=== PATIENT | male | born 1960 | race Hispanic/Latino ===

== ENCOUNTER 2020-03-07 21:35 | Emergency (ER) | payer SELFPAY ==
[2020-03-07] MEDS ORDERED: HYDROmorphone 1 MG/1 ML INJ IV ONE (22:01)
[2020-03-07] MEDS ORDERED: ONDANSETRON 4 MG/2 ML INJ IV ONE (22:01)
--- NOTE | 2020-03-07 22:04 | Emergency Department Report ---
ED Abdominal Pain HPI - General Chief Complaint: Pain General Stated Complaint: GROIN PAIN Time Seen by Provider: 03/07/20 21:56 Source: patient, EMS Mode of arrival: Stretcher Limitations: No Limitations - History of Present Illness Initial Comments: 60-year-old male, no past medical history, presents to ED with left groin pain. Patient states he picked up his grandson and then went to lay on the bed and "a hernia popped up." Patient denies any history of hernias in the past. EMS was called. Patient was given fentanyl by EMS prior to arrival. Patient reports nausea. MD Complaint: abdominal pain -: hour(s) (2) Location: LLQ Radiation: none Migration to: no migration Severity: severe Quality: sharp Consistency: constant Improves With: nothing Worsens With: other (Palpation) Associated Symptoms: nausea. denies: vomiting - Related Data Previous Rx's Medication Instructions Recorded Last Taken Type Naproxen [Naprosyn] 500 mg PO BID #20 tablet 03/07/20 Unknown Rx traMADoL [Ultram] 50 mg PO Q6HR PRN #7 tablet 03/07/20 Unknown Rx Allergies Allergy/AdvReac Type Severity Reaction Status Date / Time Penicillins Allergy Vomiting Verified 03/07/20 22:00 ED Review of Systems ROS: Stated complaint: GROIN PAIN Other details as noted in HPI Comment: All other systems reviewed and negative Gastrointestinal: abdominal pain, nausea ED Past Medical Hx - Past Medical History Previous Medical History?: No - Surgical History Past Surgical History?: No - Social History Smoking Status: Current Every Day Smoker Substance Use Type: None - Medications Home Medications: Home Medications Medication Instructions Recorded Confirmed Last Taken Type Naproxen [Naprosyn] 500 mg PO BID #20 tablet 03/07/20 Unknown Rx traMADoL [Ultram] 50 mg PO Q6HR PRN #7 tablet 03/07/20 Unknown Rx ED Physical Exam - General Limitations: No Limitations General appearance: alert, other (Appears uncomfortable) - Head Head exam: Present: atraumatic, normocephalic - Eye Eye exam: Present: normal appearance, EOMI - ENT ENT exam: Present: mucous membranes moist - Neck Neck exam: Present: normal inspection - Respiratory Respiratory exam: Present: normal lung sounds bilaterally. Absent: respiratory distress - Cardiovascular Cardiovascular Exam: Present: regular rate, normal rhythm - GI/Abdominal GI/Abdominal exam: Present: soft, hernia (Left inguinal). Absent: distended, tenderness - exam: Present: other (Left inguinal hernia present) - Extremities Exam Extremities exam: Present: normal inspection - Neurological Exam Neurological exam: Present: alert, oriented X3 - Psychiatric Psychiatric exam: Present: normal affect, normal mood - Skin Skin exam: Present: warm, dry, intact, normal color ED Course Vital Signs 03/07/20 03/07/20 03/07/20 21:50 22:04 22:06 Temperature 97.6 F Pulse Rate 77 Respiratory 16 18 Rate Blood Pressure Blood Pressure 172/88 [Left] O2 Sat by Pulse 100 Oximetry 03/07/20 22:15 Temperature Pulse Rate 70 Respiratory 26 H Rate Blood Pressure 184/95 Blood Pressure [Left] O2 Sat by Pulse 98 Oximetry - Reevaluation(s) Reevaluation #1: 03/07/20 22:13 Pt given Dilaudid 1 mg. Able to reduce left inguinal hernia. ED Medical Decision Making - Lab Data Result diagrams: 03/07/20 22:32 03/07/20 22:32 - Radiology Data Radiology results: report reviewed, image reviewed - Medical Decision Making 60-year-old male with left inguinal hernia, reduced at bedside. CT scan only shows small amount of fat within the hernia. Labs are unremarkable. Patient feeling much better at this time. He has been advised to follow-up with general surgeon. Return precautions given. - Differential Diagnosis Hernia, bowel obstruction Critical care attestation.: If time is entered above; I have spent that time in minutes in the direct care of this critically ill patient, excluding procedure time. ED Disposition Clinical Impression: Left inguinal hernia Disposition: - TO HOME OR SELFCARE Is pt being admited?: No Condition: Stable Instructions: Inguinal Hernia (ED) Prescriptions: Naproxen [Naprosyn] 500 mg PO BID #20 tablet traMADoL [Ultram] 50 mg PO Q6HR PRN #7 tablet PRN Reason: Pain Referrals: STEPH SYED MD [Staff Physician] - 3-5 Days
[2020-03-07 22:34] VITALS: BP 184/95
[2020-03-08 16:31] LABS: BUN/Creatinine Ratio 20
[2020-03-08 16:43] LABS: Eosinophils # (Auto) 0.1 K/mm3 (0.0-0.4); Eosinophils % (Auto) 1.6 % (0.0-4.3); Hematocrit 36.4 % (35.5-45.6); Hemoglobin 12.5 gm/dl (11.8-15.2); Lymphocytes # (Auto) 1.3 K/mm3 (1.2-5.4); Lymphocytes % (Auto) 27.5 % (13.4-35.0); Mean Corpuscular HGB Conc 34 % (32-34); Mean Corpuscular Volume 90 fl (84-94); Monocytes # (Auto) 0.5 K/mm3 (0.0-0.8); Monocytes % (Auto) 11.1 % (0.0-7.3); Platelet Count 162 K/mm3 (140-440); Red Blood Count 4.07 M/mm3 (3.65-5.03); Red Cell Distribution Width 13.3 % (13.2-15.2)
[2020-03-08 16:49] LABS: INR 0.97 (0.87-1.13)
[2020-03-08 16:50] LABS: Partial Thromboplastin Time 26.1 Sec. (24.2-36.6)
[2020-03-08 19:11] LABS: Blood Urea Nitrogen 18 mg/dL (9-20); Calcium 9.2 mg/dL (8.4-10.2)
--- NOTE | 2020-03-11 07:33 | Cat Scan Report ---
CT ABDOMEN AND PELVIS WITH CONTRAST INDICATION / CLINICAL INFORMATION: Patient complains of abd pain, possible LEFT inguinal hernia.. TECHNIQUE: Axial CT images were obtained through the abdomen and pelvis after 100 mL Omnipaque [address] scans at this location are performed using CT dose reduction for ALARA by means of automated exposure control. COMPARISON: None available. FINDINGS: LOWER CHEST: No significant abnormality. LIVER: No significant abnormality. GALLBLADDER: Small noncalcified stone. No wall thickening or inflammation. BILE DUCTS: No significant abnormality. PANCREAS: No significant abnormality. SPLEEN: No significant abnormality. ADRENALS: No significant abnormality. RIGHT KIDNEY / URETER: No significant abnormality. LEFT KIDNEY / URETER: No significant abnormality. STOMACH / SMALL BOWEL: No significant abnormality. COLON: No significant abnormality. APPENDIX: No significant abnormality. PERITONEUM: No free fluid. No free air. No fluid collection. LYMPH NODES: No significant adenopathy. AORTA / ARTERIES: Mild atherosclerotic calcification without acute abnormality. IVC / VEINS: No significant abnormality. URINARY BLADDER: No significant abnormality. REPRODUCTIVE ORGANS: No significant abnormality. ADDITIONAL FINDINGS: Very small fat-containing left inguinal hernia. No bowel involvement. SKELETAL SYSTEM: Lumbar degenerative findings but no acute osseous abnormality. IMPRESSION: 1. Very small fat-containing left inguinal hernia. 2. No inflammatory process or bowel obstruction. 3. Cholelithiasis. Signer Name: Jayjay Galdamez MD Signed: 03/08/2020 12:34 AM Workstation Name: [id number]
== END 2020-03-08 01:15 | disposition home or self-care (01) ==
LOC: ED 21:35
DX: K40.90 Unilateral inguinal hernia, without obstruction or gangrene, not specified as recurrent (principal); F17.200 Nicotine dependence, unspecified, uncomplicated; Z88.0 Allergy status to penicillin; Z79.899 Other long term (current) drug therapy
CPT/HCPCS: 36415; 74177; 80048; 85025; 85610; 85730; 96374; 96375; 99284; J1170; J2405; Q9967

== ENCOUNTER 2020-08-21 10:10 | Emergency (ER) | payer OTHER ==
--- NOTE | 2020-08-21 10:55 | Event Note ---
ED Screening Note Date of service: 08/21/20 Time: 10:54 ED Screening Note: 30-year-old male presents the emergency department chief complaint of left-sided groin pain. On exam patient has an incarcerated left inguinal hernia. Reports this has been incarcerated since he woke up this morning a few hours ago. He denies any vomiting or additional abdominal pain. This initial assessment/diagnostic orders/clinical plan/treatment(s) is/are subject to change based on patients health status, clinical progression and re- assessment by fellow clinical providers in the ED. Further treatment and workup at subsequent clinical providers discretion. Patient/guardian urged not to elope from the ED as their condition may be serious if not clinically assessed and managed. Initial orders include: cbc, cmp, urinalysis
[2020-08-21] MEDS ORDERED: MORPHINE 4 MG/1 ML INJ IV ONE (11:10)
[2020-08-21] MEDS ORDERED: ONDANSETRON 4 MG/2 ML INJ IV ONE (11:10)
--- NOTE | 2020-08-21 11:12 | Emergency Department Report ---
HPI - General Chief Complaint: Urogenital-Male Time Seen by Provider: 08/21/20 11:07 - HPI HPI: This is a 60-year-old male who presents to the emergency department with complaint of left groin pain and swelling that started this morning. The patient was here in February of last year and was found to have a fat filled left inguinal hernia. He has not taken anything for symptoms prior to presentation. He says it is currently 10 out of 10 in intensity. The pain increases with any palpation or certain movements. No known alleviating factors. He denies any fever, nausea, vomiting, dysuria, hematuria, back pain. He has not seen a general surgeon regarding the hernia. He denies any past medical history. ED Past Medical Hx - Past Medical History Previous Medical History?: No - Surgical History Past Surgical History?: No - Social History Smoking Status: Current Every Day Smoker Substance Use Type: None - Medications Home Medications: Home Medications Medication Instructions Recorded Confirmed Last Taken Type Naproxen [Naprosyn] 500 mg PO BID #20 tablet 03/07/20 Unknown Rx traMADoL [Ultram] 50 mg PO Q6HR PRN #7 tablet 03/07/20 Unknown Rx ED Review of Systems ROS: Stated complaint: GROIN/PELVIC PAIN Other details as noted in HPI Comment: All other systems reviewed and negative Constitutional: denies: chills, fever Eyes: denies: eye pain, vision change ENT: denies: ear pain, throat pain Respiratory: denies: cough, shortness of breath Cardiovascular: denies: chest pain, palpitations Gastrointestinal: denies: abdominal pain, vomiting Genitourinary: other (Left groin pain). denies: dysuria Musculoskeletal: denies: back pain, arthralgia Skin: denies: rash, lesions Neurological: denies: headache, weakness Physical Exam - Physical Exam Vital Signs: Vital Signs 08/21/20 10:24 Temperature 97.6 F Pulse Rate 58 L Respiratory 20 Rate Blood Pressure 173/103 O2 Sat by Pulse 99 Oximetry Physical Exam: GENERAL: The patient is well-developed well-nourished. HENT: Normocephalic. Atraumatic. Patient has moist mucous membranes. EYES: Extraocular motions are intact. NECK: Supple. Trachea is midline. CHEST/LUNGS: Clear to auscultation. There is no respiratory distress noted. HEART/CARDIOVASCULAR: Regular. There is no tachycardia. There is no murmur. ABDOMEN: Abdomen is soft, nontender. Patient has normal bowel sounds. There is no abdominal distention. SKIN: Skin is warm and dry. NEURO: The patient is awake, alert, and oriented. The patient is cooperative. The patient has no focal neurologic deficits. Normal speech. MUSCULOSKELETAL: There is no tenderness or deformity. There is no limitation range of motion. : No tenderness to palpation to the testicle or scrotum. There is swelling and firmness to the left groin that appears most consistent with a inguinal hernia. This area is tender to palpation. ED Course Vital Signs 08/21/20 10:24 Temperature 97.6 F Pulse Rate 58 L Respiratory 20 Rate Blood Pressure 173/103 O2 Sat by Pulse 99 Oximetry - Reevaluation(s) Reevaluation #1: 08/21/20 11:30 After appropriate IV analgesia, I was able to reduce the left inguinal hernia. Patient is feeling greatly improved. ED Medical Decision Making - Lab Data Result diagrams: 08/21/20 10:56 08/21/20 10:56 - Medical Decision Making This patient presents to the emergency department with complaint of pain and swelling to the left groin that appears consistent with an inguinal hernia. The patient presented with the same symptoms about 6 months ago and had a CT scan at that time that showed a fat filled inguinal hernia. Initially the area is firm, tender to palpation and I was unable to reduce it. However, after the patient received 1 dose of analgesia I was able to reduce the hernia without difficulty. The patient immediately had relief. Labs were unremarkable including CBC and metabolic panel. The abdomen is soft, nondistended and nontoxic in appearance. He has no tenderness to palpation to the scrotum or testicles. He was reevaluated multiple times over multiple hours and has remained stable and there has been no return of his hernia. Since I was able to get it to reduce, I did not feel that there was any need for CT imaging of the abdomen and pelvis. Patient will be discharged home with an outpatient referral for general surgery to establish care and discuss elective surgical repair. He will return to the closest emergency department with any return or worsening of his symptoms, or with any acute distress. Critical Care Time: No Critical care attestation.: If time is entered above; I have spent that time in minutes in the direct care of this critically ill patient, excluding procedure time. ED Disposition Clinical Impression: Left inguinal hernia Disposition: DC- TO HOME OR SELFCARE Is pt being admited?: No Condition: Stable Instructions: Inguinal Hernia, Adult Additional Instructions: Please follow-up with a primary care physician in the next few days. I am giving you a referral for a local general surgeon, Dr. Brown, to follow- up regarding your hernia. Try not to lift anything heavier than 10 pounds. Return to the closest emergency department immediately with any increased pain or swelling to your groin, at the site of the hernia. Return to the emergency department with any worsening of your symptoms, new or concerning symptoms not addressed during this current emergency department visit, or with any acute distress. Referrals: VITO BROWN MD [Staff Physician] - 2-3 Days Time of Disposition: 14:03
[2020-08-21 11:24] LABS: Basophils % (Auto) 0.7 % (0.0-1.8); Eosinophils # (Auto) 0.1 K/mm3 (0.0-0.4); Eosinophils % (Auto) 1.9 % (0.0-4.3); Hematocrit 39.4 % (35.5-45.6); Hemoglobin 13.6 gm/dl (11.8-15.2); Lymphocytes # (Auto) 1.5 K/mm3 (1.2-5.4); Lymphocytes % (Auto) 36.9 % (13.4-35.0); Mean Corpuscular HGB Conc 35 % (32-34); Mean Corpuscular Volume 91 fl (84-94); Monocytes # (Auto) 0.5 K/mm3 (0.0-0.8); Monocytes % (Auto) 11.6 % (0.0-7.3); Platelet Count 191 K/mm3 (140-440); Red Blood Count 4.33 M/mm3 (3.65-5.03); Red Cell Distribution Width 13.4 % (13.2-15.2)
[2020-08-21 11:44] LABS: Alanine Aminotransferase 50 units/L (7-56); Albumin 3.7 g/dL (3.9-5); BUN/Creatinine Ratio 13; Blood Urea Nitrogen 12 mg/dL (9-20); Calcium 9.4 mg/dL (8.4-10.2); Hemolysis Index 6
[2020-08-21 14:21] VITALS: BP 133/90
== END 2020-08-21 14:21 | disposition home or self-care (01) ==
LOC: ED 10:10
DX: K40.90 Unilateral inguinal hernia, without obstruction or gangrene, not specified as recurrent (principal); F17.200 Nicotine dependence, unspecified, uncomplicated; Z79.899 Other long term (current) drug therapy; Z88.0 Allergy status to penicillin
CPT/HCPCS: 36415; 80053; 85025; 96374; 96375; 99284; J2270; J2405